=== PATIENT | female | born 1955 | race Caucasian/White ===

== ENCOUNTER 2022-01-31 08:21 | Day surgery (SDC) | payer MEDICARE, SELFPAY ==
[2022-01-28 10:42] VITALS: BMI 29.9
[2022-01-31 09:25] VITALS: BP 135/53; PULSE 58; RESP 18; TEMP 36.6; O2SAT 99
--- NOTE | 2022-01-31 09:27 | MHC.SHP ---
Pre-Procedural Eval Section A Date of Service: 01/31/22 The patient is an INPATIENT: No Changes since office visit: No Cold of Flu in the past 2 weeks, No New Medical Problems, No Changes in Medication and No Patient answered all questions The History & Physical has been completed within 30 days and I have reviewed it.: Yes Section B Chief Complaint: rectal bleeding,constipation Allergies: Allergies Allergy/AdvReac Type Severity Reaction Status Date / Time Sulfa (Sulfonamide Allergy Unknown Unknown Verified 01/31/22 09:16 Antibiotics) Plan I have reviewed the history and physical and performed a pertinent physical examination on my patient. No changes have occurred unless specified.
--- NOTE | 2022-01-31 09:54 | PC.NURSE ---
no fluids in to scan prior to pt going into procedure room
--- NOTE | 2022-01-31 10:00 | HO.ANESPROP2 ---
HPI - Anesthesia Eval Consult details Narrative: 66 F for colonoscopy MARIVEL , CPAP mixed connective tissue disease [facility] Past Medical History Medical History HTN (hypertension) Hypothyroid Osteoarthritis Panic attacks Raynauds disease Functional capacity: independent ambulation Family History Family history of problems with anesthesia: No Surgical History Surgical History H/O colonoscopy Hx of hysterectomy Hx of umbilical hernia repair History of Problems with Anesthesia: No Social History Social History Patient Tobacco Use Status: Never used Tobacco Are you DNR?: No Advance Directives: No Advance Directives Information Provided: Yes Nutrition Risks: No Nutritional Risk Meds Allergies Allergy/AdvReac Type Severity Reaction Status Date / Time Sulfa (Sulfonamide Allergy Unknown Unknown Verified 01/31/22 09:16 Antibiotics) Home Medications Medication Instructions Recorded Confirmed Last Taken Type bupropion HCl 100 mg tablet,12 hr 100 mg PO DAILY 01/28/22 01/28/22 01/30/22 History sustained-release diltiazem HCl 180 mg capsule,24 180 mg PO DAILY 01/28/22 01/28/22 01/30/22 History hr,extended release levothyroxine 112 mcg tablet 112 mcg PO DAILY 01/28/22 01/28/22 01/30/22 History venlafaxine 150 mg 150 mg PO DAILY 01/28/22 01/28/22 01/30/22 History capsule,extended release 24 hr Exam Exam Date and Time: January 31, 2022 1000 Height,Weight and Vital Signs: Height 5 ft Weight 69.4 kg Last Vital Signs Temp 97.9 F 01/31/22 09:25 Pulse 58 01/31/22 09:25 Resp 18 01/31/22 09:25 BP 135/53 L 01/31/22 09:25 Pulse Ox 99 01/31/22 09:25 O2 Del Method 01/31/22 09:25 Airway Mallampati Class: III TM Dist: >3cm Neck ROM: Limited Loose/Missing/Broken Teeth: Yes (Front upper teeth chipped , fillings ) Heart: S1,S2 Lungs: b/l breath sounds Assessment and Plan Final Anesthetic Review Family History of Problems with Anesthesia: No History of Problems with Anesthesia: No NPO: Yes ASA Class: II Final Preanesthetic Review: Meds/Allgs Chart Reviewed, Consent Obtained/Reviewed and Anes Risks/Benef Reviewed Patient Risk: Intermediate Procedure Risk: Intermediate Anesthetic Plan Anesthetic Plan: MAC: Disposition: Standard PACU
--- NOTE | 2022-01-31 10:39 | PM.OP ---
Brief Operative Note Date of Service: 01/31/22 Pre-op diagnosis: screening Post-op diagnosis: same Procedure: colonoscopy Surgeon: [place] Anesthesia: MAC Was an [employer] used for this Procedure?: No Estimated blood loss (mL): 0 Pathology: none sent Condition: stable Disposition: PACU
[2022-01-31 10:41] VITALS: BP 110/52; PULSE 57; RESP 15; TEMP 36.7; O2SAT 98
[2022-01-31 10:56] VITALS: BP 133/51; PULSE 58; RESP 16; TEMP 36.7; O2SAT 100
--- NOTE | 2022-02-01 00:59 | OP_ITS ---
SURGEON: [place] MD INDICATIONS: Colon cancer screening. PREOPERATIVE DIAGNOSIS: POSTOPERATIVE DIAGNOSIS: PROCEDURE PERFORMED: Colonoscopy to the mid transverse colon. ESTIMATED BLOOD LOSS: COMPLICATIONS: ANESTHESIA: Monitored anesthesia care. ASSISTANTS: SPECIMENS: DESCRIPTION OF PROCEDURE: History and physical performed. The risks and benefits of the procedure were explained to the patient. Informed consent was obtained. The patient was placed in the left lateral decubitus position. A digital rectal exam was performed and was found to be normal. The Olympus pediatric video colonoscope was introduced into the rectum and advanced to the mid transverse colon. Examination was performed. The scope was removed. She tolerated the procedure well and was transferred to the recovery area in stable condition. FINDINGS: The bowel prep was incomplete, which made the thorough examination of the colon impossible. Scope could only be advanced to the mid transverse colon, where stool was encountered that did not permit advancement of the colonoscope. The remainder of the mucosa that was examined was very limited as there was a large amount of retained viscous stool, which coated the mucosa and clogged the scope. Exam was basically nondiagnostic. Retroflexed examination was also nondiagnostic. IMPRESSION: Incomplete colonoscopy due to poor prep. RECOMMENDATION: Repeat colonoscopy with 2 day prep was recommended. MD BRIAN Maurer/OANH / [id number]
== END 2022-01-31 11:38 | disposition home or self-care (01) ==
PROVIDERS: PCP Family Medicine; Visit Provider Internal Medicine Gastroenterology
PROC: 0DJD8ZZ Inspection of Lower Intestinal Tract, Via Natural or Artificial Opening Endoscopic (ICD-10-PCS; CPT 45378; principal; 2022-01-31 09:10)
DX: K59.09 Other constipation (principal); K62.5 Hemorrhage of anus and rectum; Z86.010 Personal history of colon polyps; I73.00 Raynaud's syndrome without gangrene; M35.9 Systemic involvement of connective tissue, unspecified; I10 Essential (primary) hypertension; E03.9 Hypothyroidism, unspecified; F41.0 Panic disorder [episodic paroxysmal anxiety]; Z79.899 Other long term (current) drug therapy
CPT/HCPCS: 45378